=== PATIENT | male | born 1985 | race Caucasian/White ===

== ENCOUNTER 2017-06-29 10:09 | Inpatient (IN) | payer BC, OTHER ==
[~2017-06-29] VITALS: Ht 167.6 cm; Wt 58.6 kg
[2017-06-29] VITALS (22 sets, daily range): BP systolic 99–123; BP diastolic 53–71; PULSE 60–88; RESP 13–20; Ht 167.6 cm; Wt 58.6 kg
[2017-06-29] MEDS ORDERED: CEFAZOLIN 2 GM/50 ML (PMX) 50 ML IVPB SCH (12:00)
--- NOTE | 2017-06-29 12:05 | HPN ---
Date/Time of Note Date/Time of Note DATE: 06/29/17 TIME: 12:05 Interval H&P Admission Note Pt. seen H&P reviewed: No system changes FADI CONCEPCION PA-C Jun 29, 2017 12:05
[2017-06-29] MEDS ORDERED: AL HYDROX/MG HYDROX/SIMETH 30 ML CUP PO PRN (12:30)
[2017-06-29] MEDS ORDERED: ONDANSETRON 4 MG INJ IV PRN ×2 (12:30→16:00)
[2017-06-29] MEDS ORDERED: NALOXONE (0.4 MG/ML) INJ IV PRN (12:30)
[2017-06-29] MEDS: CEFAZOLIN 1 GM/50 ML (PMX) 50 ML IVPB SCH ×2 (12:30→20:25)
[2017-06-29] MEDS ORDERED: DIPHENHYDRAMINE 50 MG INJ IV PRN ×2 (12:30→16:00)
[2017-06-29] MEDS ORDERED: HYDROCODONE/APAP (10/325) TAB PO PRN ×2 (12:30)
[2017-06-29] MEDS ORDERED: LACTATED RINGER'S 1,000 ML IV* SCH (12:30)
[2017-06-29] MEDS ORDERED: ACETAMINOPHEN 325 MG TAB PO PRN (12:30)
[2017-06-29] MEDS ORDERED: CYCLOBENZAPRINE 10 MG TAB PO PRN (12:30)
[2017-06-29] MEDS ORDERED: ZOLPIDEM 5 MG TAB PO PRN (12:30)
[2017-06-29] MEDS ORDERED: CEPASTAT LOZENGE MT PRN (12:30)
[2017-06-29] MEDS ORDERED: BISACODYL 10 MG SUPP PR PRN (12:30)
[2017-06-29] MEDS ORDERED: MIDAZOLAM 1 MG/ML 2 ML INJ ONE (13:05)
[2017-06-29] MEDS ORDERED: THROMBIN 5000 UNIT VIAL ONE (13:32)
[2017-06-29] MEDS ORDERED: GELATIN SIZE 100 SPONGE ONE (13:32)
[2017-06-29] MEDS ORDERED: SURGIFOAM POWDER 1 GM KIT ONE (13:32)
[2017-06-29] MEDS ORDERED: BUPIVACAINE 0.5%/EPI (SDV) 30 ML INJ ONE (13:32)
[2017-06-29] MEDS ORDERED: POLYMYXIN/BACITRACIN 1L IRRIG IRR ONE (14:49)
[2017-06-29] MEDS ORDERED: BUPIVACAINE 0.25% (MPF) 30 ML INJ ONE (15:06)
[2017-06-29] MEDS ORDERED: HYDROCORTISONE 100 MG INJ ONE (15:07)
[2017-06-29] MEDS ORDERED: TRIAMCINOLONE ACET 40 MG/ML INJ ONE (15:10)
[2017-06-29] MEDS ORDERED: ROCURONIUM 50 MG INJ ONE (15:42)
[2017-06-29] MEDS ORDERED: NEOSTIGMINE 3 MG/3 ML SYRINGE ONE (15:42)
[2017-06-29] MEDS ORDERED: CEFAZOLIN 1 GM INJ ONE (15:42)
[2017-06-29] MEDS ORDERED: ONDANSETRON 4 MG INJ ONE (15:42)
[2017-06-29] MEDS ORDERED: GLYCOPYRROLATE 0.4 MG INJ ONE (15:42)
[2017-06-29] MEDS ORDERED: PROPOFOL 20 ML ONE (15:42)
[2017-06-29] MEDS ORDERED: LIDOCAINE 2% (SDV) 5 ML INJ ONE (15:42)
[2017-06-29] MEDS ORDERED: HYDROmorphONE (0.2 MG/ML) 10ML SYG IV PRN (16:00)
[2017-06-29] MEDS ORDERED: METOCLOPRAMIDE 10 MG INJ IV PRN (16:00)
[2017-06-29] MEDS ORDERED: FENTAnyl 50 MCG/ML VIAL IV PRN (16:00)
[2017-06-29] MEDS ORDERED: MEPERIDINE 25 MG INJ IV PRN (16:00)
--- NOTE | 2017-06-29 16:13 | RADRPT ---
PROCEDURE: Fluoroscopic spot views of the lumbar spine for surgical guidance CLINICAL INDICATION: Back pain TECHNIQUE: 18 fluoroscopic spot views of the lumbar spine. Images were submitted to the radiology department for interpretation. COMPARISON: None FINDINGS: Multiple surgical instruments are seen in the lumbar sacral region. A surgical marker is identified. The images were reviewed by the attending physician at the time of the procedure. Fluoroscopy time was 38.9 seconds. IMPRESSION: Intraoperative images were obtained of the lumbar spine for surgical guidance. Please refer to the [facility] operative notes for further details. RPTAT: HPNM Physician Julienne Date Time Electronically viewed and signed by Physician Julienne on 06/29/2017 16:13 /
[2017-06-29] MEDS: HYDROmorphONE (0.2 MG/ML) 10ML SYG IV PRN ×3 (16:24→16:38)
--- NOTE | 2017-06-29 16:39 | SIPON ---
Date/Time of Note Date/Time of Note DATE: 06/29/17 TIME: 16:38 Operative Report Preoperative Diagnosis Right L5-S1 stenosis Postoperative Diagnosis Right L5-S1 stenosis Operation/Procedure Performed Right L5-S1 extraforaminal decompression Surgeon see signature line vector control assistant Ayaka Hollis Anesthesia: general Estimated blood loss: 10 - 50 ml's Transfusion Required none Specimen None Grafts/Implants none Complications none LENA KAPLAN MD Jun 29, 2017 16:39
--- NOTE | 2017-06-29 17:52 | PN ---
Date/Time of Note Date/Time of Note DATE: 06/29/17 TIME: 17:50 Assessment/Plan VTE Prophylaxis VTE Prophylaxis Intervention: SCD's Lines/Catheters IV Catheter Type (from Nrsg): Saline Lock Subjective 24 Hr Interval Summary Free Text/Dictation 32 yr old post lami, awake and alert. no co pain, moves legs well, no discomfort on right some knee and thigh discomfort on the left no active medical problems vs ok, lungs clear, hr ok, no edema scds in p[lace dc per dr joe Exam/Review of Systems Vital Signs Vitals Vital Signs Date Time Temp Pulse Resp B/P Pulse Ox O2 Delivery O2 Flow Rate FiO2 06/29/17 16:55 88 19 107/53 97 Room Air 06/29/17 15:56 98.4 Medications Medications Current Medications Cefazolin Sodium/ Dextrose 50 ml @ 100 mls/hr PREOP IVPB ; Start 06/29/17 at 12 :00; Stop 06/29/17 at 23:00 Potassium Chloride/Dextrose/ Sod Cl (D5-1/2ns + KCl 20 Meq) 1,000 ml @ 100 mls/ hr Q10H IV ; Start 06/29/17 at 12:05 Acetaminophen/ Hydrocodone Bitart ([place]ell (10/325)) 1 tab Q4H PRN PO PAIN LEVEL 1-5; Start 06/29/17 at 12:30 Acetaminophen/ Hydrocodone Bitart ([place]unnell (10/325)) 2 tab Q4H PRN PO PAIN LEVEL 6-10; Start 06/29/17 at 12:30 Hydromorphone HCl 0.2 mg 0.2 mg Q1H PRN IV BREAKTHROUGH PAIN; Start 06/29/17 at 12:30 Cefazolin Sodium (Ancef 1 Gm/50 ml (Pmx)) 50 ml @ 100 mls/hr Q8H IVPB ; Start 06/29/17 at 12:30; Stop 06/30/17 at 04:59 Ondansetron HCl (Zofran Inj) 4 mg Q6H PRN IV NAUSEA AND/OR VOMITING; Start 06/29/17 at 12:30 Bisacodyl (Dulcolax Supp) 10 mg DAILY PRN [place] CONSTIPATION; Start 06/29/17 at 12 :30 Docusate Sodium (Colace) 100 mg BID PO ; Start 06/29/17 at 21:00 Al Hydrox/Mg Hydrox/Simethicone (Mag-Al Plus) 15 ml Q6H PRN PO CONSTIPATION/ DYSPEPSIA; Start 06/29/17 at 12:30 Acetaminophen (Tylenol Tab) 650 mg Q4H PRN PO AWAD OR TEMP GREATER THAN 101.3F; Start 06/29/17 at 12:30 Cyclobenzaprine HCl (Flexeril) 10 mg TID PRN PO MUSCLE SPASMS; Start 06/29/17 at 12:30 Phenol (Cepastat Lozenge) 1 lozenge PRN PRN MT SORE THROAT; Start 06/29/17 at 12:30 Diphenhydramine HCl (Benadryl) 25 mg Q6H PRN IV ITCHING; Start 06/29/17 at 12: 30 Naloxone HCl (Narcan) 0.2 mg Q2M PRN IV RR 8 BREATHS/MIN OR LESS; Start at 12:30 KELLY BARRIENTOS MD Jun 29, 2017 17:52
--- NOTE | 2017-06-29 20:06 | OPR ---
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 PROCEDURE: 1. Right extraforaminal decompression at L5-S1. 2. Takedown of Bertolotti with partially-fused right L5 transverse process. 3. Use of C-arm fluoroscopy with interpretation without radiologist present. 4. Use of intraoperative neuromonitoring (1 hour 40 minutes). PRIMARY SURGEON: Cruz Cash MD ACCOUNT SERVICE ASSOCIATE: FANG Bardales NEED FOR DISTRICT MANAGER POSTAL SERVICE: During this spinal surgical procedure, my assistant program director was used to retrac t and protect the spinal nerves and dural sac. My assistant program director also employed the suction catheters to evacuate blood from the surgical field to improve visualization of the neural structures. The efren tant was medically necessary to facilitate the completion of the surgery in a safe and expeditious m galen. [facility] regulations, as well as hospital bylaws, preclude the use of non-license d health care personnel, such as operating room technicians, to perform these functions. FINDINGS: At the start of the case, right L4 amplitude was normal, right L5 amplitude down 40%, rig ht S1 amplitude down 30%. End of the case, nerve signals returned to normal. Patient had stenosis on the right at L5-S1 extraforaminally. ESTIMATED BLOOD LOSS: Less than 30 mL. DRAINS: None. SPECIMENS: None. COMPLICATIONS TO PROCEDURE: None. ANESTHESIOLOGIST: Alfredito Turcios MD TYPE OF ANESTHESIA: General. INDICATIONS FOR PROCEDURE: This is a 32-year-old gentleman with right low back and leg pain. He santos d failed conservative measures, then underwent multiple diagnostic studies. It was discussed with t he patient that it is not entirely clear where his symptoms are coming from; however, he has Bertolo tti syndrome on the right side and therefore it was recommended to perform a procedure to take down the Bertolotti syndrome. It was recommended to perform an extraforaminal decompression on the right side to see if that helps with his symptoms. Preoperatively, I discussed the risks, benefits and a lternatives. He understood and wished to proceed. DESCRIPTION OF PROCEDURE IN DETAIL: The patient was identified in the preoperative holding area, [facility], taken to the operating room, where he was successfully placed under general an esthesia. Neuromonitoring leads were placed, sequential compressive devices were applied. Neuromon itoring was utilized during the procedure for 1 hour 40 minutes to include SSEP, MEP and EMG. This was performed by [employer]. Start time was 2:00 p.m., closure time was 3:40 p.m. The patien t was placed on the operating table in prone position over a Ez frame. All bony prominences wer e well padded. The back was then prepped and draped in usual sterile fashion. Using the C-arm fluo roscope, I identified the incision site. I anesthetized the skin and paraspinal musculature with 0. 25% Marcaine and epinephrine. Parasagittal incision was made at the L5-S1 level. I incised the ski n, incised the dorsal fascia. I then finger dissected down to the bony elements. Here, I was able to find the L5-S1 and the L4-L5 facet joints. I was able to expose the right L5 transverse process and the right sacral ala. Next, I took multiple images to confirm the correct location. I then use d a high-speed bur to thin down the inferior aspect of the T5 transverse process. I then performed an extraforaminal decompression at L5-S1 and took down the Bertolotti partially-fused L5 transverse process. Once I did the decompression, the L5 and S1 nerve signals returned to normal. I did take a portion of the superior aspect of S1 down as well in order to decompress the nerve roots. Once th is was done, I irrigated the wound. Hemostasis was achieved with Surgifoam. Wound was irrigated ag ain. I then took Kenalog 40 mL with 1 mL of Marcaine 0.25% preservative-free and injected this over the DRG. I then closed the fascia with a #1 Vicryl stitch. I then injected plain Marcaine into th e skin and paraspinal musculature. I then closed the skin with a subcutaneous 2-0 Vicryl stitch. D ermabond was then applied. The patient was then awakened from anesthesia and taken to the recovery room in stable condition. Lap, sponge and instrument counts correct x2. There were no apparent com plications during the procedure. The patient will be admitted to orthopedic hill for routine postoperative care to include pain contr ol, neurovascular checks, antibiotics and physical therapy. Dictated By: CRUZ BURGOS/NADER Conf#: [id number] DID#: [id number] CC: FADI CONCEPCION;*EndCC*
[2017-06-29] MEDS: D5W-0.45 NACL + KCL 20 MEQ 1,000 ML IV SCH ×2 (20:17→22:50)
[2017-06-29] MEDS: HYDROmorphONE 0.5 MG/0.5 ML SYG IV PRN (20:26)
[2017-06-29] MEDS: DOCUSATE SODIUM 100 MG CAP PO SCH (20:26)
[2017-06-30 00:25] VITALS: BP 101/53; RESP 20
[2017-06-30] MEDS: HYDROmorphONE 0.5 MG/0.5 ML SYG IV PRN (02:52)
[2017-06-30] MEDS: CEFAZOLIN 1 GM/50 ML (PMX) 50 ML IVPB SCH (04:57)
[2017-06-30 05:17] LABS: BASOPHILS % 0.1 % (0.0-2.0); HEMATOCRIT 40.9 % (42.0-52.0); HEMOGLOBIN 14.3 g/dl (14.0-18.0); LYMPHOCYTES # 0.7 10^3/ul (0.8-2.9); LYMPHOCYTES % 5.2 % (15.0-51.0); MEAN CORPUSCULAR HEMOGLOBIN 32.6 pg (29.0-33.0); MEAN CORPUSCULAR VOLUME 93.4 fl (82.0-101.0); MEAN PLATELET VOLUME 10.6 fl (7.4-10.4); MONOCYTE # 0.4 10^3/ul (0.3-0.9); NEUTROPHIL # 11.7 10^3/ul (1.6-7.5); NEUTROPHILS % 91.4 % (39.0-77.0); PLATELET COUNT 238 10^3/UL (140-415); RED BLOOD COUNT 4.38 10^6/ul (4.70-6.10); RED CELL DISTRIBUTION WIDTH 12.6 % (11.5-14.5); WHITE BLOOD COUNT 12.8 10^3/ul (4.8-10.8)
[2017-06-30 05:49] LABS: CALCIUM 9.4 mg/dl (8.4-10.2); CREATININE 0.69 mg/dl (0.61-1.24); MAGNESIUM 1.6 mg/dl (1.7-2.5); POTASSIUM 4.1 mmol/L (3.5-5.1)
[2017-06-30] MEDS: D5W-0.45 NACL + KCL 20 MEQ 1,000 ML IV SCH (08:05)
[2017-06-30 08:25] VITALS: BP 114/55; RESP 20
[2017-06-30] MEDS: DOCUSATE SODIUM 100 MG CAP PO SCH (08:58)
--- NOTE | 2017-06-30 12:17 | DS ---
DATE OF ADMISSION: 06/29/2017 DATE OF DISCHARGE: 06/30/2017 ADMITTING DIAGNOSIS: Lumbar stenosis. DISCHARGE DIAGNOSIS: Lumbar stenosis. PROCEDURE: The patient was taken to the operating room for right L5 to S1 decompression. HOSPITAL COURSE: The patient was admitted to the orthopedic hill after undergoing the above procedu re. His postoperative course was uncomplicated. By postoperative day 1, he was deemed stable for d ischarge with followup arranged with the undersigned. Dictated By: LENA BURGOS/NADER Conf#: [id number] DID#: [id number]
[2017-06-30] MEDS ORDERED: MAGNESIUM OXIDE 400 MG TAB PO ONE (12:30)
[2017-06-30 15:00] VITALS: BP 101/53; RESP 20
== END 2017-06-30 15:55 | disposition home or self-care (01) | DRG 517 ==
LOC: REC 10:31 → MS1 17:05
PROVIDERS: ADMIT Specialist; ATTEND Specialist
PROC: 01NB0ZZ Release Lumbar Nerve, Open Approach (ICD-10-PCS; principal; 2017-06-29 12:00)
DX: Q76.49 Other congenital malformations of spine, not associated with scoliosis (principal); M48.07 Spinal stenosis, lumbosacral region
CPT/HCPCS: 72114; 80048; 83735; 85025; 86999; 97116; 97163; J0690; J1170; J1720; J2175; J2250; J2405; J2710; J3010